=== PATIENT | female | born 1980 ===

== ENCOUNTER 2018-01-10 17:31 | Emergency (ER) | payer MEDICAID ==
[2018-01-10] MEDS ORDERED: Sodium Chloride 0.9% 1,000 ML IV STA (18:32)
--- NOTE | 2018-01-10 18:36 | ED PDOC ---
HPI: General Adult Time Seen by Provider: 01/10/18 18:34 Chief Complaint (Nursing): Flu-like Symptoms Chief Complaint (Provider): flu-like illness History Per: Patient (37 y/o female here with ongoing headache/fever since sunday. States was noted strep positive last week and started on augmentin. As she felt not improved, seen by pmd on sunday and switched to zithromax. Notes additional rash on body for which she was given ointment that was not effective . States she swabbed negative for influenza. No vomiting/diarrhea. Notes abdominal pain with nausea today.) Past Medical History Reviewed: Historical Data, Nursing Documentation, Vital Signs Vital Signs: Last Vital Signs Temp 99.6 F 01/10/18 17:57 Pulse 115 H 01/10/18 17:57 Resp 16 01/10/18 17:57 BP 164/101 H 01/10/18 17:57 Pulse Ox 100 01/10/18 19:49 - Medical History PMH: Denies: Anemia, Diabetes, Hepatitis, HIV, HTN, Seizures, Sexually Transmitted Disease - Family History Family History: States: Unknown Family Hx - Immunization History Hx Tetanus Toxoid Vaccination: No Hx Influenza Vaccination: No Hx Pneumococcal Vaccination: No - Home Medications Home Medications: Ambulatory Orders Medication Instructions Recorded Lansoprazole [Prevacid] 30 mg PO DAILY #14 capsule. 01/10/18 Ondansetron ODT [Zofran ODT] 4 mg PO Q8 PRN #10 odt 01/10/18 oxyCODONE/Acetaminophen [Percocet 1 ea PO Q6 PRN #10 tab 01/10/18 5/325 mg Tab] predniSONE [Prednisone] 3 tab PO DAILY #12 tab 01/10/18 valACYclovir [Valtrex] 1 gm PO TID #21 tab 01/10/18 - Allergies Allergies/Adverse Reactions: Allergies Allergy/AdvReac Type Severity Reaction Status Date / Time No Known Allergies Allergy Verified 01/10/18 17:57 Review of Systems ROS Statement: Except As Marked, All Systems Reviewed And Found Negative Review Of Systems: ROS cannot be obtained secondary to pt's inabilty to answer questions. Constitutional: Positive for: Fever Physical Exam - Reviewed Nursing Documentation Reviewed: Yes Vital Signs Reviewed: Yes - Physical Exam Appears: Positive for: Well, Non-toxic, No Acute Distress Head Exam: Positive for: ATRAUMATIC, NORMAL INSPECTION, NORMOCEPHALIC Skin: Positive for: Normal Color, Warm, Rash (blisters noted on erythematous patches along neck and right upper chest wall.) Eye Exam: Positive for: EOMI, Normal appearance, PERRL ENT: Positive for: Normal ENT Inspection Neck: Positive for: Normal, Painless ROM Cardiovascular/Chest: Positive for: Regular Rate, Rhythm Respiratory: Positive for: CNT, Normal Breath Sounds Gastrointestinal/Abdominal: Positive for: Normal Exam, Bowel Sounds, Soft Back: Positive for: Normal Inspection Extremity: Positive for: Normal ROM Neurologic/Psych: Positive for: Alert, Oriented - Laboratory Results Result Diagrams: 01/10/18 18:50 01/10/18 18:50 - ECG O2 Sat by Pulse Oximetry: 100 Disposition - Clinical Impression Clinical Impression: Shingles - Patient ED Disposition Is Patient to be Admitted: No - Disposition Referrals: [facility] [Outside] Disposition: Routine/Home Disposition Time: 20:00 Condition: FAIR Prescriptions: Lansoprazole [Prevacid] 30 mg PO DAILY #14 capsule. Ondansetron ODT [Zofran ODT] 4 mg PO Q8 PRN #10 odt PRN Reason: Nausea/Vomiting oxyCODONE/Acetaminophen [Percocet 5/325 mg Tab] 1 ea PO Q6 PRN #10 tab PRN Reason: Pain, Severe (8-10) predniSONE [Prednisone] 3 tab PO DAILY #12 tab valACYclovir [Valtrex] 1 gm PO TID #21 tab Instructions: Shingles (DC) Forms: [employer] (Ukrainian), [facility] ED School/Work Excuse Print Language: PORTUGUESE Patient Signed Over To: Jannie Block Handoff Comments: pending potassium level
[2018-01-10 18:57] LABS: BASO # 0.1 K/uL (0.0-0.2); BASO % 0.7 % (0.0-2.0); EOS # 0.1 K/uL (0.0-0.7); EOS % 1.3 % (0.0-4.0); HEMOGLOBIN 12.7 g/dL (12.0-16.0); LYMPH # 1.3 K/uL (1.0-4.3); LYMPH % 16.3 % (20.0-40.0); MEAN CELL VOLUME 85.9 fl (81.0-99.0); MEAN CORPUSCULAR HEMOGLOBIN 28.8 pg (27.0-31.0); MEAN CORPUSCULAR HGB CONC 33.5 g/dL (33.0-37.0); MEAN PLATELET VOLUME 9.9 fl (7.2-11.7); MONO # 0.6 K/uL (0.0-0.8); MONO % 7.9 % (0.0-10.0); NEUT # 5.7 K/uL (1.8-7.0); NEUT % 73.8 % (50.0-75.0); RBC 4.41 Mil/uL (3.80-5.20); WHITE BLOOD COUNT 7.7 K/uL (4.8-10.8)
[2018-01-10] MEDS ORDERED: Morphine 4 MG/ML VIAL ONE (19:00)
[2018-01-10 19:06] LABS: CALCIUM 8.3 mg/dL (8.4-10.2); GFR AFRICAN-AMERICAN > 60; GFR NON-AFRICAN AMERICAN > 60
[2018-01-10 19:16] LABS: BLOOD UREA NITROGEN 13 mg/dl (7-17)
--- NOTE | 2018-01-10 19:55 | ED PDOC ---
- Laboratory Results Result Diagrams: 01/10/18 18:50 01/10/18 19:45 - ECG O2 Sat by Pulse Oximetry: 100 Medical Decision Making Medical Decision Making: Case was signed out to telegraphic typewriter operator from JOSIAH Damon pending repeat potassium. Initial potassium was hemolyzed and value was 5.6. Repeat K is 3.9. Patient is stable for discharge. repeat blood pressure prior to discharge 138/80, heart rate 90. Disposition - Clinical Impression Clinical Impression: Lukas - LUCY Present On Arrival: None - Disposition Referrals: [facility] [Outside] Disposition: Routine/Home Disposition Time: 21:03 Condition: IMPROVED Prescriptions: Lansoprazole [Prevacid] 30 mg PO DAILY #14 capsule. Ondansetron ODT [Zofran ODT] 4 mg PO Q8 PRN #10 odt PRN Reason: Nausea/Vomiting oxyCODONE/Acetaminophen [Percocet 5/325 mg Tab] 1 ea PO Q6 PRN #10 tab PRN Reason: Pain, Severe (8-10) predniSONE [Prednisone] 3 tab PO DAILY #12 tab valACYclovir [Valtrex] 1 gm PO TID #21 tab Instructions: Lukas (DC) Forms: [employer] (Mozambican), [facility] ED School/Work Excuse Print Language: TAMAZIGHT
[2018-01-10 20:28] VITALS: BP 138/80; PULSE 90; RESP 17; TEMP 98.9
[2018-01-10 20:37] VITALS: O2SAT 100
== END 2018-01-10 20:29 | disposition home or self-care (01) ==
LOC: H.ER 17:31
DX: J11.1 Influenza due to unidentified influenza virus with other respiratory manifestations (principal); B02.9 Zoster without complications
CPT/HCPCS: 80048; 82948; 84132; 85025; 96374; 96375; 99285; J2270; J2405; J7040